=== PATIENT | female | born 1985 ===

== ENCOUNTER 2017-06-30 20:41 | Emergency (ER) | payer SELFPAY ==
[2017-06-30 20:53] VITALS: BP 141/80; PULSE 85; RESP 14; TEMP 98.1; O2SAT 98
[2017-06-30] MEDS ORDERED: Lidocaine 1% Inj (20ml) IJ ONE (21:08)
[2017-06-30] MEDS ORDERED: Povidone Iodine Topical 10% Sol ONE (21:12)
--- NOTE | 2017-06-30 21:21 | ED PDOC ---
Lower Extremity Pain/Injury Time Seen by Provider: 06/30/17 20:54 Chief Complaint (Nursing): Lower Extremity Problem/Injury Chief Complaint (Provider): Lower Extremity Problem/Injury History Per: Patient History/Exam Limitations: no limitations Onset/Duration Of Symptoms: Days (x5) Current Symptoms Are (Timing): Still Present Additional Complaint(s): 31 year old female who presents to the emergency department with a complaint of right great toe pain associated with swelling status post accidentally cutting self while using toenail clippers 6 days ago. Denied any fever or chills. PMD: none provided Past Medical History Reviewed: Historical Data, Nursing Documentation, Vital Signs Vital Signs: Last Vital Signs Temp 98.1 F 06/30/17 20:50 Pulse 85 06/30/17 20:50 Resp 14 06/30/17 20:50 BP 141/80 06/30/17 20:50 Pulse Ox 98 06/30/17 20:50 - Medical History PMH: No Chronic Diseases Denies: Chronic Kidney Disease - Surgical History Surgical History: No Surg Hx - Family History Family History: States: Unknown Family Hx - Social History Current smoker - smoking cessation education provided: No Ex-Smoker (has not smoked in the last 12 months): No Alcohol: None Drugs: Denies - Home Medications Home Medications: Ambulatory Orders Medication Instructions Recorded Cephalexin [cephalexin] 500 mg PO Q6 #28 cap 06/30/17 - Allergies Allergies/Adverse Reactions: Allergies Allergy/AdvReac Type Severity Reaction Status Date / Time No Known Allergies Allergy Verified 06/30/17 20:50 Review of Systems ROS Statement: Except As Marked, All Systems Reviewed And Found Negative Constitutional: Negative for: Fever, Chills Musculoskeletal: Positive for: Foot Pain (right great toe associated with swelling) Physical Exam - Reviewed Nursing Documentation Reviewed: Yes Vital Signs Reviewed: Yes - Physical Exam Appears: Positive for: Well, Non-toxic, No Acute Distress Extremity: Positive for: Normal ROM, Tenderness (lateral aspect of right great toe moderately), Capillary Refill (right great toe <2secs), Swelling (lateral aspect of right great toe moderately). Negative for: Calf Tenderness Neurologic/Psych: Positive for: Alert (x3), Oriented - ECG O2 Sat by Pulse Oximetry: 98 (RA) Pulse Ox Interpretation: Normal Medical Decision Making Medical Decision Making: Initial Impression: Initial Plan: * Lidocaine 1% 3ml IJ Case d/w Ernst, podiatry resident, who recommends applying triple antibiotic over toe along with f/u with podiatry clinic on Monday with Rx for Keflex. Scribe Attestation: Documented by Faith Nicholson, acting as a scribe for [place] PA-C. Provider Scribe Attestation: All medical record entries made by the Scribe were at my direction and personally dictated by me. I have reviewed the chart and agree that the record accurately reflects my personal performance of the history, physical exam, medical decision making, and the department course for this patient. I have also personally directed, reviewed, and agree with the discharge instructions and disposition. Procedures - Time-Out Type of Procedure: Incision and drainage Site of Procedure: R great toe Correct Patient (with visual ID + MR# on ID Band): Yes Correct Procedure: Yes PA/Tech: Julien - Incision and Drainage Blade Size: 11 I & D Procedure: betadine prep Progress: No purulent material expressed. Disposition - Clinical Impression Clinical Impression: [facility] - Patient ED Disposition Is Patient to be Admitted: No - Disposition Referrals: Podiatry Clinic [Outside] Disposition: Routine/Home Disposition Time: 21:35 Condition: STABLE Additional Instructions: Follow up with podiatry clinic on Monday for further evaluation. Prescriptions: Cephalexin [cephalexin] 500 mg PO Q6 #28 cap Instructions: [facility] (ED) Forms: [employer] ([place]) Print Language: [place]GI[place]
== END 2017-06-30 21:44 | disposition home or self-care (01) ==
LOC: H.ER 20:41
DX: L03.031 Cellulitis of right toe (principal)